=== PATIENT | male | born 1975 | race Caucasian/White ===

== ENCOUNTER 2018-10-05 21:06 | Emergency (ER) | payer OTHER, MEDICAID ==
[~2018-10-05] VITALS: Ht 175.3 cm; Wt 121.6 kg
[2018-10-05 21:31] LABS: ABSOLUTE EOSINOPHILS 0.3 thou/uL (0.0-0.7); ABSOLUTE LYMPHOCYTES 2.5 thou/uL (0.8-5.3); ABSOLUTE MONOCYTES 0.7 thou/uL (0.0-1.2); ABSOLUTE NEUTROPHILS 6.9 thou/uL (1.6-8.1); BASOPHILS 0.2 %; EOSINOPHILS 3.1 %; HEMATOCRIT 50.2 % (42.0-52.0); HEMOGLOBIN 17.1 gm/dL (14.0-18.0); LYMPHOCYTES 24.1 %; MCH 30.4 pg (26.0-34.0); MCHC 34.1 g/dL (28.0-37.0); MCV 89.3 fL (80.0-100.0); MONOCYTES 6.4 %; MPV 8.6 fl. (7.2-11.1); NUCLEATED RBCS 0 /100WBC; PLATELET COUNT* 349 thou/uL (150-400); POLYS 66.2 %; RBC 5.62 mil/uL (4.50-6.00); RDW-CV 14.4 % (10.5-14.5); WBC 10.5 thou/uL (4.0-11.0)
[2018-10-05] MEDS ORDERED: PRINIVIL10 MG PO (21:34)
[2018-10-05 21:40] LABS: ANION GAP 11 mmol/L (7-16); BUN 19 mg/dL (7-18); CALCIUM 9.7 mg/dL (8.5-10.1); CHLORIDE 102 mmol/L (98-107); CO2 23 mmol/L (21-32); CREATININE 1.4 mg/dL (0.6-1.3); GLUCOSE 112 mg/dL (70-99); POTASSIUM 4.5 mmol/L (3.5-5.1); SODIUM 136 mmol/L (136-145)
[2018-10-05 21:43] LABS: INR 0.9; PROTIME 9.7 Seconds (9.20-11.50)
[2018-10-05 21:50] LABS: ALBUMIN 3.9 g/dL (3.4-5.0); ALKALINE PHOSPHATASE 93 U/L (46-116); LIPASE 123 U/L (73-393); NT-PRO BRAIN NAT PEPTIDE 70 pg/mL (<300); SGOT 13 U/L (15-37); SGPT 33 U/L (30-65); TOTAL BILIRUBIN 0.2 mg/dL (<0.1-1.0); TOTAL PROTEIN 8.1 g/dL (6.4-8.2); TROPONIN-I LEVEL <0.06 ng/mL (<0.06)
[2018-10-05 22:35] VITALS: BP 125/88
--- NOTE | 2018-10-06 11:10 | EKG ---
[place] [address] ELECTROCARDIOGRAM REPORT Name: JONA PARDO [id number] Admission: 10/05/18 Attend Phys: Discharge: 10/05/18 Date of : 71 Report #: [id number] THIS REPORT FOR: //name// [facility] ED Test Date: 2018-10-05 Test Time: 21:08:06 Pat Name: JONA PARDO Department: Room: Gender: Culture Manager: [place] : 1975 Requested By: Lupe Melendez Order Number: [id number] MD: Fernando Little Measurements Intervals [place] Rate: 110 P: 46 ND: 142 QRS: 62 QRSD: 98 T: 40 QT: 336 QTc: 455 Interpretive Statements Sinus tachycardia No previous ECG available for comparison Electronically Signed On 10-06-2018 11:10:00 CDT by Fernando Little [email or web address] <ELECTRONICALLY SIGNED> By: Fernando Little MD, [facility] 10/06/18 1110 2108 2108 Fernando Little MD, FACC /EPI
== END 2018-10-05 22:35 | disposition home or self-care (01) ==
LOC: M.ERS 21:06
PROVIDERS: Personal Emergency Response Attendant
DX: I16.1 Hypertensive emergency (principal); F41.9 Anxiety disorder, unspecified; Z88.1 Allergy status to other antibiotic agents; Z95.5 Presence of coronary angioplasty implant and graft